=== PATIENT | female | born 1990 | race African-American/Black ===

== ENCOUNTER 2017-08-06 19:06 | Emergency (ER) | payer SELFPAY, OTHER ==
[2017-08-06] MEDS: HYDROCODONE/APAP (5/325) TAB PO (22:51)
[2017-08-06 22:58] LABS: URINE BLOOD (Dip) POC 2+ (NEGATIVE); URINE GLUCOSE (Dip) POC Negative (NEGATIVE); URINE KETONES (Dip) POC Negative (NEGATIVE); URINE LEUKOCYTE EST (Dip) POC Trace (NEGATIVE); URINE NITRITE (Dip) POC Negative (NEGATIVE); URINE TOTAL PROTEIN POC Negative (NEGATIVE)
== END 2017-08-07 01:05 | disposition home or self-care (01) ==
LOC: FTE 08-07 01:05
DX: S70.212A Abrasion, left hip, initial encounter (principal); S79.911A Unspecified injury of right hip, initial encounter; R07.9 Chest pain, unspecified; V43.62XA Car passenger injured in collision with other type car in traffic accident, initial encounter
CPT/HCPCS: 71045; 73510; 81003; 99284-25